=== PATIENT | male | born 1985 | race Caucasian/White ===

== ENCOUNTER 2019-07-09 07:35 | Emergency (ER) | payer MEDICAID ==
[~2019-07-09] VITALS: Ht 180.3 cm; Wt 90.7 kg
[~2019-07-09 07:35] MED LIST: ALPR1TAB2 PO
[2019-07-09 07:43] VITALS: BP 132/76
--- NOTE | 2019-07-09 07:47 | NUR ---
33 Y/O M C/O BILATERAL EAR DISCOMFORT. 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 PT DENIES ANY FEVER/CHILLS DRAINAGE FROM THE EARS. PT POSITIONED FOR COMFORT, SIDE RAIL X1 IN PLACE. NKA MEDHX: BILATERAL EARDRUM REPLACEMENT
--- NOTE | 2019-07-09 07:51 | NUR ---
DR MARSH AT BEDSIDE EXAMINING PATIENT.
[2019-07-09 07:58] VITALS: BP 132/76
--- NOTE | 2019-07-09 07:58 | NUR ---
Patient discharged with v/s stable. Written and verbal after care instructions given and explained. Patient verbalized understanding. Ambulatory with steady gait. All questions addressed prior to discharge. Advised to follow up with PMD.
== END 2019-07-09 07:58 | disposition home or self-care (01) ==
LOC: MED 07:35
DX: H92.03 Otalgia, bilateral (principal); J45.909 Unspecified asthma, uncomplicated; I10 Essential (primary) hypertension; Z79.899 Other long term (current) drug therapy
CPT/HCPCS: 99281

== ENCOUNTER 2020-03-26 14:36 | Emergency (ER) | payer SELFPAY ==
[~2020-03-26] VITALS: Ht 179.1 cm; Wt 83.5 kg
[2020-03-26 14:57] VITALS: BP 135/79
--- NOTE | 2020-03-26 15:24 | NUR ---
AMB TO BED 11
--- NOTE | 2020-03-26 15:28 | NUR ---
34 y/o M presents to ER c/o "radiation going through his body from 4 months ago". Pt states "I got my blood drawn and my blood went to bright red so I feel like that's when the radiation hit." Pt complains of body aches x4 months. Pain level 6/10. Pt denies ETOH or drug use. Pt denies thoughts of hurting self and others. Allergies: NKA Med hx: Anxiety
--- NOTE | 2020-03-26 15:29 | NUR ---
DR. SCHULER EVALUATING PT AT BEDSIDE
[2020-03-26 16:03] LABS: BASOPHILS % (AUTO) 0.3 % (0.0-2.0); EOSINOPHILS # (AUTO) 0.3 K/uL (0-0.4); EOSINOPHILS % (AUTO) 3.1 % (0.0-4.0); HEMATOCRIT 49.6 % (36-52); HEMOGLOBIN 16.9 g/dL (12.0-18.0); LYMPHOCYTES % (AUTO) 18.8 % (20.5-51.1); MEAN CORPUSCULAR HEMOGLOBIN 31 pg (27-31); MEAN CORPUSCULAR HGB CONC 34 g/dL (33-37); MEAN CORPUSCULAR VOLUME 90.1 fL (80-94); MONOCYTES % (AUTO) 9.8 % (1.7-9.3); PLATELET COUNT (AUTO) 209 K/uL (140-450); RED BLOOD CELL COUNT(AUTO) 5.51 MIL/uL (4.20-6.10); RED CELL DISTRIBUTION WIDTH 12.8 % (11.6-13.7); WHITE BLOOD COUNT (AUTO) 10.4 K/uL (4.8-10.8)
[2020-03-26 16:12] LABS: CARBON DIOXIDE 28.3 mmol/L (21-32); CREATININE 1.1 mg/dL (0.6-1.3); POTASSIUM 4.3 mmol/L (3.5-5.1)
[2020-03-26 16:54] VITALS: BP 132/82
== END 2020-03-26 16:54 | disposition home or self-care (01) ==
LOC: MED 14:36
DX: R53.1 Weakness (principal); R53.83 Other fatigue; F41.9 Anxiety disorder, unspecified
CPT/HCPCS: 36415; 80048; 85025; 99283